=== PATIENT | female | born 1990 | race African-American/Black ===

== ENCOUNTER 2016-08-15 18:41 | Emergency (ER) | payer SELFPAY ==
[~2016-08-15 18:41] MED LIST: ABILIFY10 MG PO; ABILIFY30 MG PO; ACETAMINOPHEN500 M5 PO; ADVIL200 M1 PO; ALBUTEROL SULF8.5 GM IH; ALLERGY RELIEF10 M7 PO; AMITRIPTYLINE; ANXIETY MED; ATIVAN1 M1 PO; ATIVAN1 MG PO; BUSPIRONE; BUSPIRONE HCL10 M2 PO; CEFDINIR300 MG PO; CELEXA20 M2 PO; CLINDAMYCIN HC150 M1 PO; CYCLOBENZAPRINE10 M1 PO; CYCLOBENZAPRINE5 M1 PO; DEPAKOTE ER250 M1 PO; DEPAKOTE PO; DICLOFENAC POTA50 M1 PO; EFFEXOR XR150 M1 PO; EFFEXOR XR75 M1 PO; ELAVIL10 MG PO; FLEXERIL10 MG PO; FLONASE ALLERG9.9 ML NS; HYDROCODON-ACE1 EA16 PO; HYDROXYZINE HCL25 MG PO; IMITREX100 M1 PO; LAMICTAL25 M1 PO; LATUDA40 M1 PO; MEDROL4 M2 PO; MEDROL4 MG/DOSE- PO; MOTRIN800 MG PO; MUSCLE RELAXER; NEURONTIN300 M1 PO; NO HOME MEDICATION XX; NO HOME MEDS; NO MEDICATIONS; NORCO 10-325 T1 EACH PO; NORCO 5-325 TA1 EACH PO; NORCO 5/325 TAB1 TAB PO; PAROXETINE HCL20 M1 PO; PAXIL; PAXIL20 MG PO; PEPCID40 M1 PO; PERCOCET 5MG/AP1 TAB PO; PREDNISONE10 M1 PO; PREDNISONE20 M1 PO; PRILOSEC20 M1 PO; PROMETHAZINE HC25 M3 PO; PROVENTIL HFA6.7 G1 IH; REQUIP PO; RISPERDAL; SEROQUEL100 M2 PO; SERTRALINE; SKELAXIN800 M3 PO; TIZANADINE; TRAZODONE; TRAZODONE100 MG PO; TYLENOL EXTRA500 M1 PO; TYLENOL325 M2 PO; TYLENOL325 MG PO; ULTRAM PO; ULTRAM50 MG PO; VALIUM5 MG PO; VERTIGO MED PO; WELLBUTRIN XL300 M3 PO; XANAX1 M1 PO; XANAX2 M1 PO; ZANTAC150 MG PO; ZITHROMAX250MG Z-PAK PO; ZOFRAN4 M2 PO; ZOLOFT50 MG PO; ZPAK
[2016-08-15] MEDS ORDERED: VENTOLIN HFA18 G2 PO (20:56)
[2016-08-15 21:39] LABS: BASO % 0.2 % (0-2); EOS % 0.8 % (0-7); EOSINOPHIL ABSOLUTE COUNT 0.1 tho/cmm (0.0-0.7); HCT-HEMATOCRIT 39.3 % (34.0-49.0); HGB-HEMOGLOBIN 13.6 gm/dl (12.0-15.5); IMMATURE GRANULOCYTES ABSOLUTE 0.02 tho/cmm (0-0.03); IMMATURE GRANULOCYTES PERCENT 0.2 % (0-0.3); LYMPH % 29.9 % (20-45); LYMPH ABSOLUTE COUNT 3.3 tho/cmm (0.8-4.5); MCH (MEAN CORPUSCULAR HGB) 29.8 pg (28.0-32.0); MCHC MEAN CORPUSCULAR HGB CONC 34.6 % (32.0-36.0); MEAN PLATELET VOLUME 11.9 cmc (9.4-12.4); MONO % 8.1 % (0-12); MONOCYTE ABSOLUTE COUNT 0.9 tho/cmm (0.0-1.2); NEUTROPHIL ABSOLUTE COUNT 6.8 tho/cmm (1.6-8.0); NEUTROPHIL-AUTOMATED 6.8 tho/cmm (1.6-8.0); NEUTROPHILS % 60.8 % (40-80); RED BLOOD COUNT 4.57 mil/cmm (4.00-5.20); RED CELL DISTRIBUTION WIDTH 13.4 % (12.4-16.4); WHITE BLOOD COUNT 11.2 tho/cmm (4.0-10.0)
[2016-08-16 00:09] LABS: PLATELET COUNT 262 tho/cmm (150-450)
[2016-12-19] MEDS ORDERED: TESTONE CI200 MG/1 M SC (22:42)
[2016-12-19] MEDS ORDERED: ESCITALOPRAM OXALATE (22:43)
[2016-12-19] MEDS ORDERED: SEROQUEL50 M1 PO (22:43)
[2016-12-19] MEDS ORDERED: CLINDAMYCIN HC150 M1 PO (22:58)
[2016-12-19] MEDS ORDERED: ULTRAM50 M1 PO (22:58)
[2016-12-19] MEDS ORDERED: ZOFRAN ODT4 MG PO (23:00)
== END 2016-08-16 00:21 ==
LOC: EDMED 18:41
PROVIDERS: Emergency Medicine; Nurse Practitioner Family
DX: S70.12XA Contusion of left thigh, initial encounter (principal); J45.909 Unspecified asthma, uncomplicated; Z79.899 Other long term (current) drug therapy; Z88.0 Allergy status to penicillin; Z88.1 Allergy status to other antibiotic agents; Z88.8 Allergy status to other drugs, medicaments and biological substances; X58.XXXA Exposure to other specified factors, initial encounter